=== PATIENT | female | born 1970 ===

== ENCOUNTER 2017-07-03 23:23 | Emergency (ER) | payer SELFPAY ==
--- NOTE | 2017-07-03 23:46 | ED PDOC ---
Arrival/HPI - General Historian: Patient - History of Present Illness Time/Duration: 1/2 hour Quality: Aching Context: Home - General Time Seen by Provider: 07/03/17 23:46 - History of Present Illness Narrative History of Present Illness (Text): 07/03/17 23:46 This 46 yo female presents to this ED c/o RO x 20 minutes. Patient stated RO started suddenly, located at her forehead. Patient denies neck pain, photophobia, nausea, weakness, paresthesias, dizziness or abnormal gait. (Lizette Pires) Past Medical History - Provider Review Nursing Documentation Reviewed: Yes Family/Social History - Physician Review Nursing Documentation Reviewed: Yes Family/Social History: Other (contributory) Allergies/Home Meds Allergies/Adverse Reactions: Allergies No Known Allergies Allergy (Verified 07/03/17 23:51) Review of Systems - Review of Systems Constitutional: Normal. absent: Fatigue, Weight Change, Fevers, Night Sweats Eyes: Normal. absent: Vision Changes, Photophobia ENT: Normal Respiratory: Normal. absent: SOB, Cough Cardiovascular: Normal. absent: Chest Pain, Palpitations Gastrointestinal: Normal. absent: Abdominal Pain, Nausea, Vomiting Genitourinary Female: Normal. absent: Dysuria, Frequency Musculoskeletal: Normal Skin: Normal Neurological: Headache. absent: Dizziness, Focal Weakness, Gait Changes, Speech Changes, Facial Droop, Disequilibrium, Seizure Endocrine: Normal Hemo/Lymphatic: Normal Psychiatric: Normal Physical Exam Temperature: Afebrile Blood Pressure: Normal Pulse: Regular Respiratory Rate: Normal Appearance: Positive for: Well-Appearing, Non-Toxic, Uncomfortable Pain Distress: Moderate Mental Status: Positive for: Alert and Oriented X 3 - Systems Exam Head: Present: Atraumatic, Normocephalic Pupils: Present: PERRL Extroacular Muscles: Present: EOMI Conjunctiva: Present: Normal Mouth: Present: Moist Mucous Membranes Neck: Present: Normal Range of Motion Respiratory/Chest: Present: Clear to Auscultation, Good Air Exchange. No: Respiratory Distress, Accessory Muscle Use Cardiovascular: Present: Regular Rate and Rhythm, Normal S1, S2. No: Murmurs Abdomen: Present: Normal Bowel Sounds. No: Tenderness, Distention, Peritoneal Signs Back: Present: Normal Inspection Upper Extremity: Present: Normal Inspection, Normal ROM, NORMAL PULSES, Neurovascularly Intact, Capillary Refill < 2s. No: Cyanosis, Edema Lower Extremity: Present: Normal Inspection, Normal ROM. No: Edema Neurological: Present: GCS=15, CN II-XII Intact, Speech Normal, Motor Func Grossly Intact, Normal Sensory Function, Normal Cerebellar Funct, Gait Normal, Memory Normal Skin: Present: Warm, Dry, Normal Color. No: Rashes Psychiatric: Present: Alert, Oriented x 3, Normal Insight, Normal Concentration Vital Signs Temp Pulse Resp BP Pulse Ox 07/03/17 23:24 97.8 F 68 16 133/73 100 Medical Decision Making Re-evaluation Time: 00:59 Reassessment Condition: Re-examined, Improved ED Course and Treatment: 07/04/17 00:58 Re-evaluation. Patient feels better. Discussed results and plan with patient who expresses understanding. All questions answered and there is agreement with the plan to discharge home with instructions. Patient stable for discharge. Return if symptoms persist or worsen. (Lizette Pires) - RAD Interpretation Narrative RAD Interpretations (Text): 07/04/17 00:57 EXAM: CT Head Without Intravenous Contrast CLINICAL HISTORY: 46 years old, female; Pain; Headache; Headache not specified; Additional info: RO TECHNIQUE: Axial computed tomography images of the head/brain without intravenous contrast. All CT scans at this facility use one or more dose reduction techniques, viz.: automated exposure control; ma/kV adjustment per patient size (including targeted exams where dose is matched to indication; i.e. head); or iterative reconstruction technique. COMPARISON: No relevant prior studies available. FINDINGS: Brain: No intracranial hemorrhage. No mass. No definite edema. Ventricles: No hydrocephalus. Bones/joints: No acute fracture. Soft tissues: Unremarkable. Sinuses: No acute sinusitis. Mastoid air cells: No mastoid effusion. Orbits: Unremarkable as visualized. IMPRESSION: 1. No acute intracranial abnormality. Thank you for allowing us to participate in the care of your patient. Dictated and Authenticated by: Henry Dillard MD 07/04/2017 12:52 AM Eastern Time ([place] & [place]) (Lizette Pires) Radiology Orders: 07/03/17 23:52 HEAD W/O CONTRAST [CT] Stat - Medication Orders Current Medication Orders: Discontinued Medications Diphenhydramine HCl (Benadryl) 50 mg IVP STAT STA Stop: 07/03/17 23:54 Last Admin: 07/04/17 00:13 Dose: 50 mg IVP Administration Document 07/04/17 00:13 MD (Rec: 07/04/17 00:13 [id number][facility] Charges for Administration # of IVP Administrations 1 Sodium Chloride (Sodium Chloride 0.9%) 1,000 mls @ 999 mls/hr IV .Q1H1M STA Stop: 07/04/17 00:52 Last Admin: 07/04/17 00:13 Dose: 999 mls/hr eMAR Start Stop Document 07/04/17 00:13 SC (Rec: 07/04/17 00:13 [id number]) Intravenous Solution Start Date 07/04/17 Start Time 00:13 End Date 07/04/17 End time 01:13 Total Infusion Time 60 Ketorolac Tromethamine (Toradol) 15 mg IVP STAT STA Stop: 07/04/17 00:59 Last Admin: 07/04/17 01:12 Dose: Not Given Non-Admin Reason: Patient Asleep Metoclopramide HCl (Reglan) 10 mg IVP STAT STA Stop: 07/03/17 23:54 Last Admin: 07/04/17 00:13 Dose: 10 mg IVP Administration Document 07/04/17 00:13 MD (Rec: 07/04/17 00:13 [id number]) Charges for Administration # of IVP Administrations 1 Disposition/Present on Arrival - Present on Arrival Any Indicators Present on Arrival: No History of DVT/PE: No History of Uncontrolled Diabetes: No Urinary Catheter: No History of Decub. Ulcer: No - Disposition Have Diagnosis and Disposition been Completed?: Yes Disposition Time: 00:59 Patient Plan: Discharge - Disposition Diagnosis: Headache, acute Disposition: HOME/ ROUTINE Discharge Instructions (ExitCare): Acute Headache (ED) Additional Instructions: Call private doctor for follow up visit in 1-2 days. Take medication as instructed. Return to emergency if symptoms worsen. Call neurologist for further evaluation Prescriptions: Famotidine [Pepcid] 40 mg PO DAILY #10 tablet Naproxen 500 mg PO BID PRN #14 tab PRN Reason: Pain, Severe (8-10) Referrals: PCP,NO [Primary Care Provider] - Follow up with primary River Tse MD [Staff Provider] - Follow up with primary [facility] [Outside] - Follow up with primary [facility] [Outside] - Follow up with primary Forms: WORK NOTE
[2017-07-03 23:51] VITALS: BP 133/73; PULSE 68; RESP 16; TEMP 97.8; O2SAT 100
[2017-07-03] MEDS ORDERED: Sodium Chloride 0.9% 1,000 ML IV STA (23:52)
[2017-07-03] MEDS ORDERED: DiphenhydrAMINE 50 mg/ml Inj IVP STA (23:53)
--- NOTE | 2017-07-04 00:53 | CT ---
EXAM: CT Head Without Intravenous Contrast CLINICAL HISTORY: 46 years old, female; Pain; Headache; Headache not specified; Additional info: RO TECHNIQUE: Axial computed tomography images of the head/brain without intravenous contrast. All CT scans at this facility use one or more dose reduction techniques, viz.: automated exposure control; ma/kV adjustment per patient size (including targeted exams where dose is matched to indication; i.e. head); or iterative reconstruction technique. COMPARISON: No relevant prior studies available. FINDINGS: Brain: No intracranial hemorrhage. No mass. No definite edema. Ventricles: No hydrocephalus. Bones/joints: No acute fracture. Soft tissues: Unremarkable. Sinuses: No acute sinusitis. Mastoid air cells: No mastoid effusion. Orbits: Unremarkable as visualized. IMPRESSION: 1. No acute intracranial abnormality.
== END 2017-07-04 01:27 | disposition home or self-care (01) ==
LOC: ED 23:23
DX: R51 Headache (principal)
CPT/HCPCS: 70450; 81025; 96361; 96374; 96375; 99285; J1200; J2765; J7040